=== PATIENT | male | born 1945 | race Caucasian/White ===

== ENCOUNTER 2018-02-06 16:31 | Emergency (ER) | payer MEDICARE, OTHER, SELFPAY ==
[2018-02-06 16:35] VITALS: BP 162/92; PULSE 63; RESP 18; TEMP 37; O2SAT 98; BMI 31.6
--- NOTE | 2018-02-06 17:14 | CT_ITS ---
STUDY: CT CERVICAL SPINE WITHOUT CONTRAST REASON FOR EXAM: Male, 73 years old. Left-sided neck pain x3 days RADIATION DOSAGE (If Supplied By Facility): CTDIvol = ( 23.65 ) mGy, DLP = ( 574.47 ) mGycm TECHNIQUE: High resolution transaxial imaging was performed without contrast material. Sagittal and coronal images were reconstructed. Individualized dose optimization techniques were used for this CT. COMPARISON: None FINDINGS: Normal craniovertebral junction. Normal anterior atlantoaxial articulation. Normal odontoid process. Normal cervical lordosis. Normal vertebral bodies and posterior osseous elements. C2-3: Normal endplates. Normal disc height and morphology. Normal central canal and intervertebral neuroforamina. C3-4: Normal endplates. Normal disc height and morphology. Normal central canal and intervertebral neuroforamina. C4-5: Normal endplates. Normal disc height and morphology. Normal central canal and intervertebral neuroforamina. C5-6: Moderate neural foraminal narrowing bilaterally, right greater than left due to uncinate spondylosis. Small posterior disc marginal osteophyte. Central canal measures 7 mm in the midline. C6-7: Moderate neural foraminal narrowing bilaterally, right greater than left due to uncinate spondylosis. Small posterior disc marginal osteophyte. Central canal measures 7 mm in the midline. C7-T1: Normal endplates. Normal disc height and morphology. Normal central canal and intervertebral neuroforamina. Normal visualized soft tissue structures. CT/Spine Cervical without Contras IMPRESSION: Central lateral spinal stenosis at C5-6 and C6-7 Electronically Signed: Dong Echevarria MD at 17:58 EDT , Service support ,
--- NOTE | 2018-02-06 18:32 | ED.VISSUMM ---
- ER Visit Summary Date of Service: 02/06/18 Chief Complaint: Neck pain History of Present Illness: The patient is a 73 M who states that he is visiting posterior from [place]. [facility] [place] [facility] [place] [facility]. States he has some chronic back pain. Just prior to leaving [place] while he has been on this occasion he has had some pain in the left side of his neck. Reports the area the mastoid on going inferiorly to that. States it is better in the morning worse in the afternoon and evening. He has been using the Voltaren rub and some heat. He has tramadol but has not been helping so he stopped taking it. Denies any paresthesias. He denies any arm weakness. No fevers. No rashes. Physical Examination: Afebrile vital signs stable Gen: Well-nourished well-developed Head: Normocephalic atraumatic Eyes: Perrl EOMI ENT: TMs clear no rhinorrhea moist mucous membranes Neck: Supple no lymphadenopathy no JVD mild tenderness palpation along the left posterior neck musculature CVS: Regular rate rhythm no murmurs normal S1-S2 Respiratory: No distress clear to auscultation bilaterally chest nontender Abdomen: Soft nontender nondistended normal bowel sounds no masses Back: Nontender Extremity: Nontender no edema Skin: Normal color no rash Neuro: alert orientated ?3 CN II-XII intact normal strength sensation reflexes gait cerebellar Psych: Normal affect normal mood Test Results: CT of the cervical spine demonstrated degenerative changes and some cervical stenosis. Emergency Department Course and Treatment: I will write for the patient has some oxycodone. He is going to follow-up with his doctor when he returns to [place]. He will continue the Voltaren in the heat. Impression: 1. Cervical spinal stenosis This note was generated with [employer] dictation software. It may contain incorrect words, spelling, and punctuation that were not noted in review of the chart prior to signing ED Disposition - Plan for ED Patient: Disposition: Home or Assisted Living Chief Complaint: Other, Pain/Inj Instructions: ED DDD Degenerative Disk Disease Prescriptions: Oxycodone [Oxyir] 5 mg PO Q4H PRN PRN 5 Days #25 tab PRN Reason: Pain Referrals: [facility] Doctor,Out of [Primary Care Provider] - (call in am to arrange follow up)
--- NOTE | 2018-02-06 18:35 | ED.DCSUM_ITS ---
- ER Visit Summary Date of Service: 02/06/18 Chief Complaint: Neck pain History of Present Illness: The patient is a 73 M who states that he is visiting posterior from [place]. [facility] [place] [facility]. States he has some chronic back pain. Just prior to leaving [place] while he has been on this occasion he has had some pain in the left side of his neck. Reports the area the mastoid on going inferiorly to that. States it is better in the morning worse in the afternoon and evening. He has been using the Voltaren rub and some heat. He has tramadol but has not been helping so he stopped taking it. Denies any paresthesias. He denies any arm weakness. No fevers. No rashes. Physical Examination: Afebrile vital signs stable Gen: Well-nourished well-developed Head: Normocephalic atraumatic Eyes: Perrl EOMI ENT: TMs clear no rhinorrhea moist mucous membranes Neck: Supple no lymphadenopathy no JVD mild tenderness palpation along the left posterior neck musculature CVS: Regular rate rhythm no murmurs normal S1-S2 Respiratory: No distress clear to auscultation bilaterally chest nontender Abdomen: Soft nontender nondistended normal bowel sounds no masses Back: Nontender Extremity: Nontender no edema Skin: Normal color no rash Neuro: alert orientated ?3 CN II-XII intact normal strength sensation reflexes gait cerebellar Psych: Normal affect normal mood Test Results: CT of the cervical spine demonstrated degenerative changes and some cervical stenosis. Emergency Department Course and Treatment: I will write for the patient has some oxycodone. He is going to follow-up with his doctor when he returns to [place]. He will continue the Voltaren in the heat. Impression: 1. Cervical spinal stenosis This note was generated with [employer] dictation software. It may contain incorrect words, spelling, and punctuation that were not noted in review of the chart prior to signing ED Disposition - Plan for ED Patient: Disposition: Home or Assisted Living Chief Complaint: Other, Pain/Inj Instructions: ED DDD Degenerative Disk Disease Prescriptions: Oxycodone [Oxyir] 5 mg PO Q4H PRN PRN 5 Days #25 tab PRN Reason: Pain Referrals: [facility] Doctor,Out of [Primary Care Provider] - (call in am to arrange follow up)
== END 2018-02-06 18:42 | disposition home or self-care (01) ==
PROVIDERS: Emergency Provider Emergency Medicine
DX: M48.02 Spinal stenosis, cervical region (principal); I25.10 Atherosclerotic heart disease of native coronary artery without angina pectoris; I25.2 Old myocardial infarction; G89.29 Other chronic pain; Z79.82 Long term (current) use of aspirin; Z79.01 Long term (current) use of anticoagulants; Z79.899 Other long term (current) drug therapy
CPT/HCPCS: 72125; 99282

== ENCOUNTER 2021-11-22 10:26 | Emergency (ER) | payer OTHER, SELFPAY ==
[2021-11-22 10:28] VITALS: BP 107/81; PULSE 112; RESP 24; TEMP 35.7; O2SAT 95; BMI 30.4
--- NOTE | 2021-11-22 10:51 | ED.VIS.GI ---
HPI HPI - GI History of Present Illness Chief Complaint: Nausea/Vomiting/Diarrhea Informant: patient Nausea/Vomiting/Emesis GI Symptom: Positive for Nausea and Vomiting Onset: Yesterday Quality: Positive for Nonbilious; Negative for Blood streaks, Coffee ground and Hematemesis Diarrhea/Melena/Hematochezia GI Symptom: Positive for Diarrhea Onset: Yesterday Stool Quality: Positive for Watery; Negative for Black, Maroon and BRB per rectum Associated Symptoms Associated Symptoms: Negative for Dysuria, Frequency and Hematuria Narrative Narrative: Patient presents with nausea, vomiting, and diarrhea that began yesterday. Patient states it has been constant. Patient states his diarrhea is watery. Patient denies any melena or hematochezia. Patient denies any dysuria or hematuria. Patient states he is vomiting up stomach contents and everything that he tries to eat. Patient denies any hematemesis or coffee-ground emesis. Patient denies any abdominal pain. Patient admits to some subjective chills. Patient states that his daughter also ate the same thing that he did and she does not have any symptoms. Patient states that his grandchildren had recent nausea and vomiting and diarrhea episodes a couple of days ago. PFSH PFS Home Medications aspirin 325 mg PO QHS 02/06/18 [History Last Taken Unknown] atorvastatin 40 mg PO QHS 02/06/18 [History Last Taken Unknown] clopidogrel 75 mg PO QHS 02/06/18 [History Last Taken Unknown] diclofenac sodium 1 applic TOPICAL 4X/DAY PRN PRN 02/06/18 [History Last Taken Unknown] ondansetron 4 mg PO Q8H PRN PRN #10 tab 11/22/21 [Rx Last Taken Unknown] Allergy/AdvReac Type Severity Reaction Status Date / Time codeine Allergy Itching Verified 11/22/21 11:21 gabapentin Allergy Other Verified 11/22/21 11:21 oxycodone Allergy Itching Verified 11/22/21 11:21 OPIOIDS AdvReac Other Uncoded 11/22/21 10:28 Surgical History (Updated 11/22/21 @ 11:16 by Zayda Hernandez RN) History of heart artery stent Social History Smoking Status: Current every day smoker tobacco type: cigarettes ROS ROS ED Constitutional Constitutional ED: Reports chills; Denies fever(s) Eyes Eyes: Denies blurry vision or change in vision ENT ENT ED: Reports rhinorrhea; Denies sore throat Cardiovascular Cardiovascular: Denies chest pain or palpitations Respiratory/Chest Respiratory/Chest: Denies cough or dyspnea Gastrointestinal Gastrointestinal: Reports diarrhea, nausea and vomiting; Denies abdominal pain Genitourinary Genitourinary ED: Denies dysuria or hematuria Musculoskeletal Musculoskeletal: Reports arthralgias, myalgias and neck pain; Denies back pain Integumentary Denies abscess or rash Neurologic Neurologic: Denies headache(s) or weakness Allergic/Immunologic Allergic/Immunologic ED: Denies mouth swelling or urticaria EXAM Physical Exam Const Vital Signs: 11/22/21 10:28 Temperature 96.3 F L Temperature Source Oral Pulse Rate 112 H Respiratory Rate 24 H Blood Pressure 107/81 H Blood Pressure Mean 89 Pulse Ox 95 Oxygen Delivery Method Room Air Positive well nourished and well developed General Appearance ED: well developed and NAD HEENT Reports moist mucous membranes Neck supple and no JVD Resp normal respiratory effort and clear to auscultation bilaterally Cardio regular rhythm Rate: tachycardic GI normal to inspection, nondistended, normoactive bowel sounds and non-tender Palpation: soft Extremity normal to inspection General Extremety ED: Negative for edema or tenderness General Extremity: Negative for edema Neuro oriented x3, CN's II-XII intact bilaterally and no sensory deficits noted Sensorium / Orientation: alert Motor Exam: strength 5/5 throughout Psych mental status grossly normal Skin no rashes or lesions noted MDM MDM MDM Narrative Medical decision making narrative: Patient was given IV fluids and Zofran. CBC was essentially within normal limits. Comprehensive metabolic profile shows slightly elevated BUN of 22 and creatinine 1.53. There are no prior results for comparison. Lipase was normal. Urinalysis shows leukocyte esterase of 25. Nitrates were negative. There were 0-5 white blood cells and 0-5 red blood cells. Patient is feeling better on reevaluation. Patient was given a prescription for Zofran to take as needed for nausea. Patient was instructed to start with a liquid diet and advance to a bland diet and then to a regular diet as he feels better. Patient was instructed to follow-up with his primary care physician in 5 to 7 days. Patient was instructed to return to the emergency department if worse in any way. Patient understood and was agreeable with the plan. All questions were answered. Lab Data Attestation: I reviewed the patient's lab results. Labs: Laboratory Results - last 24 hr 11/22/21 11/22/21 11/22/21 11:10 11:10 11:50 WBC 10.0 RBC 5.21 Hgb 17.0 H Hct 51.0 MCV 97.9 H MCH 32.6 H MCHC 33.3 RDW Std Deviation 50.9 H RDW Coeff of Emily 14.1 Plt Count 264 MPV 10.2 Immature Gran % (Auto) 0.300 Neut % (Auto) 92.0 H Lymph % (Auto) 4.1 L [place] % (Auto) 3.0 Eos % (Auto) 0.3 Baso % (Auto) 0.3 Absolute Neuts (auto) 9.2 H Absolute Lymphs (auto) 0.41 L Nucleated RBC % 0 Differential Comment Platelet Estimate ADEQUATE RBC Morphology NORM C+C Sodium 143 Potassium 3.8 Chloride 108 H Carbon Dioxide 26.0 Anion Gap 9 BUN 22 H Creatinine 1.53 H Estim Creat Clear Calc 45.79 Est GFR (MDRD) Af Amer 57 L Est GFR (MDRD) Non-Af 47 L BUN/Creatinine Ratio 14.4 Glucose 147 H Calcium 9.0 Total Bilirubin 1.00 AST 21 ALT 27 Alkaline Phosphatase 105 Total Protein 7.0 Albumin 3.6 Globulin 3.4 Albumin/Globulin Ratio 1.1 Lipase 49 L Urine Color Yellow Urine Clarity Sl. Cloudy Urine pH 7.0 Ur Specific [place] 1.010 Urine Protein 30 H Urine Glucose (UA) Normal Urine Ketones 5 H Urine Occult Blood 10 H Urine Nitrite Negative Urine Bilirubin 1 H Urine Urobilinogen 1 H Ur Leukocyte Esterase 25 H Urine RBC 0-5 SEEN Urine WBC 0-5 SEEN Ur Squamous Epith Cells 0-5 SEEN Urine Bacteria 1+ Urine Mucus 0 SEEN Discharge Plan Triage Chief Complaint: Nausea/Vomiting/Diarrhea ED Provider: [facility] Dx/Rx/DC Orders Clinical Impression: Nausea and vomiting, Dehydration Instructions: ED Food Poison Or Gastroenteritis Prescriptions: New ondansetron [ondansetron] 4 MG tablet 4 mg PO Q8H PRN PRN (Reason: Nausea) Qty: 10 RF: 0 No Action atorvastatin 40 MG tablet 40 mg PO QHS RF: 0 aspirin 325 MG tablet 325 mg PO QHS RF: 0 clopidogrel 75 MG tablet 75 mg PO QHS RF: 0 diclofenac sodium 100 GM gel 1 applic topical 4X/DAY PRN PRN (Reason: Pain) RF: 0 [facility] Provider[facility] - 5-7 Days Disposition Disposition: Home, Self Care
[2021-11-22] MEDS: Ondansetron 4 MG/2 ML Vial IV (11:06)
[2021-11-22] MEDS: 0.9% Normal Saline 1,000 ML 1000 ML IV (11:06)
[2021-11-22 11:26] LABS: Absolute Lymphocyte Count 0.41 X10^3/uL (0.83-4.51); Absolute Neutrophil Count 9.2 X10^3/uL (2.0-7.7); Basophil# 0.03 X10^3/uL; Basophil% 0.3 % (0-1); Eosinophil# 0.03 X10^3/uL; Eosinophils% 0.3 % (0-5); Lymphocyte # 0.41 X10^3/ul (0.83-4.51); Lymphocyte % 4.1 % (19-41); Mean Corp Hgb Conc 33.3 g/dL (32-36); Mean Corpuscular Hgb 32.6 pg (27.0-32.0); Mean Corpuscular Volume 97.9 fL (80-94); Mean Platelet Vol. 10.2 fl (6.2-12.0); NRBC Flagged by Analyzer 0 % (0-5); POSITIVE DIFFERENTIAL YES; Platelet Count 264 K/mm3 (150-450); RBC Distribution Width CV 14.1 % (11.6-14.6); RBC Distribution Width SD 50.9 fl (35.1-43.9); Red Blood Count 5.21 M/mm3 (4.6-6.2)
[2021-11-22 11:29] LABS: Differential Indicated SCAN CRITERIA MET
[2021-11-22 11:45] LABS: ALB/GLOB Ratio 1.1 RATIO (0.9-2.4); AST(SGOT) 21 U/L (15-37); Alanine Aminotransfer ALT/SGPT 27 U/L (16-61); Albumin, Serum 3.6 g/dL (3.2-5.0); Alkaline Phosphatase 105 U/L (45-117); Anion Gap 9 (5-15); BUN 22 mg/dL (7-18); BUN/Creat Ratio 14.4 RATIO (10-20); Chloride 108 mmol/L (98-107); Creatinine, Serum 1.53 mg/dL (0.70-1.30); EST Glomerular Filtration Rate 47 mL/min (>60); Est Glom Filt Rate - Afr Amer 57 mL/min (>60); Estimated Creatinine Clearance 45.79 ml/min; Globulin 3.4 g/dL (2.2-4.2); Glucose 147 mg/dL (74-106); Lipase 49 U/L (73-393); Potassium 3.8 mmol/L (3.5-5.1); Sodium Level 143 mmol/L (136-145)
[2021-11-22 12:02] LABS: Platelet Estimate ADEQUATE (ADEQ); Red Cell Morphology NORM C+C NORMAL (NORM C&C)
[2021-11-22 12:29] LABS: Mucous, Urine 0 SEEN /hpf (<or=2+)
[2021-11-22 12:51] LABS: Color, Urine Yellow (Yellow); Glucose, Dipstick Normal (Normal); Ketone-Dipstick 5 mg/dl (Negative); Leukocyte Esterase-Dipstick 25 /ul (Negative); Nitrite-Dipstick Negative (Negative); Occult Blood-Urine 10 /ul (Negative); Protein-Dipstick 30 mg/dl (Negative); Urine Clarity Sl. Cloudy (Clear); Urine Urobilinogen 1 mg/dl (Normal)
[2021-11-22 12:53] LABS: Urine Bilirubin Dipstick 1 mg/dL (Negative)
[2021-11-22 13:05] LABS: Bacteria 1+ /hpf (None Seen); Red Blood Cells-Urine 0-5 SEEN /hpf (0-5); Squamous Epithelial Cells - UA 0-5 SEEN /hpf (0-5); White Blood Cells 0-5 SEEN /hpf (0-5)
[2021-11-22 13:34] VITALS: BP 111/70; PULSE 93; RESP 21; O2SAT 96
== END 2021-11-22 13:35 | disposition home or self-care (01) ==
PROVIDERS: Emergency Provider Emergency Medicine; Visit Provider Emergency Medicine
DX: R11.2 Nausea with vomiting, unspecified (principal); E86.0 Dehydration; F17.210 Nicotine dependence, cigarettes, uncomplicated
CPT/HCPCS: 80053; 81001; 83690; 85025; 96361; 96374; 99284; J7030; A4216; J2405

== ENCOUNTER 2022-07-11 04:06 | Emergency (ER) | payer OTHER, SELFPAY ==
[2022-07-11] VITALS (7 sets, daily range): BP systolic 115–152; BP diastolic 63–99; PULSE 67–76; RESP 20–24; TEMP 35.9–36.8; O2SAT 94–98; BMI 31.0
--- NOTE | 2022-07-11 04:27 | EKG12_ITS ---
Test Reason : CP Blood Pressure : / mmHG Vent. Rate : 082 BPM Atrial Rate : 082 BPM P-R Int : 242 ms QRS Dur : 098 ms QT Int : 370 ms P-R-T Axes : 029 007 087 degrees QTc Int : 432 ms Sinus rhythm with marked sinus arrhythmia with 1st degree A-V block Otherwise normal ECG Confirmed by OLAYINKA ARZOLA, MIRNA ([id number]), video news editor PATRIZIA COE ([id number]) on 07/12/2022 11:25:13 AM Referred By: MARGY Confirmed By:MIRNA BHAGAT MD
--- NOTE | 2022-07-11 04:27 | CT_ITS ---
We are attempting to reach an attending provider to discuss findings. An addendum with communication details will be sent when the communication is complete. STUDY: CTA CHEST REASON FOR EXAM: Male, 77 years old. Chest pain / ? PE RADIATION DOSAGE (If Supplied By Facility): CTDIvol = ( 19.73 ) mGy, DLP = ( 564.12 ) mGycm TECHNIQUE: The examination was performed with the intravenous administration of IV 100mL Isovue-370. Post-processing of the angiographic images was performed, with multiplanar reformation and 3D reconstruction. Individualized dose optimization techniques were used for this CT. COMPARISON: None. FINDINGS: There is a visualized filling defect within a right middle lobe branch. Ascending thoracic aorta measures 3.4 x 3.2 cm the descending thoracic aorta measures 3 x 3.3 cm. The aorta is tortuous partially calcified and demonstrates atherosclerotic plaque. There is no demonstrated aortic dissection. Normal heart and pericardium. Normal mediastinum. Normal hilar regions. There is visualized mild to moderate central bronchiectasis especially in the lung bases. There few scattered emphysematous blebs within the lungs especially in the right upper lobe. Within the right middle lobe there is visualized. Groundglass opacity in the periphery of the right middle lobe. Normal pleura. Normal chest wall structures. There are degenerative changes of thoracic spine. Visualized cholelithiasis. There is moderate stool within the colon. There is a visualized small hiatal hernia. There is mild distention of the distal esophagus. The aorta at the hiatus measures 3.[address]/CTA Chest W/WO Contrast IMPRESSION: Findings are positive for right middle lobe pulmonary embolism. There is peripheral groundglass opacity in the right middle lobe and right upper lobe which may represent peribronchial inflammation and associated bronchiectasis and/or potentially chronic PE. There is bronchiectasis minimal atelectasis. Minimal emphysematous change. 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 Small hiatal hernia. Wall thickening of the esophagus could consider esophagitis. Electronically Signed: Marianne Coleman MD at 6:00 EST ,
--- NOTE | 2022-07-11 04:27 | EKG12_ITS ---
Test Reason : REPEAT Blood Pressure : / mmHG Vent. Rate : 063 BPM Atrial Rate : 063 BPM P-R Int : 216 ms QRS Dur : 100 ms QT Int : 396 ms P-R-T Axes : 080 004 090 degrees QTc Int : 405 ms Sinus rhythm with marked sinus arrhythmia with 1st degree A-V block Otherwise normal ECG Confirmed by OLAYINKA ARZOLA, MIRNA ([id number]), magazine editor PATRIZIA COE ([id number]) on 07/12/2022 11:25:29 AM Referred By: Confirmed By:MIRNA BHAGAT MD
[2022-07-11] MEDS: Aspirin 325 MG Tablet PO (04:34)
[2022-07-11 04:35] LABS: Absolute Lymphocyte Count 2.03 X10^3/uL (0.83-4.51); Absolute Neutrophil Count 8.9 X10^3/uL (2.0-7.7); Basophil# 0.05 X10^3/uL; Basophil% 0.4 % (0-1); Eosinophils% 1.7 % (0-5); Hematocrit 51.8 % (40-54); Hemoglobin 16.7 g/dL (13.0-16.5); Lymphocyte # 2.03 X10^3/ul (0.83-4.51); Lymphocyte % 16.9 % (19-41); Mean Corp Hgb Conc 32.2 g/dL (32-36); Mean Corpuscular Hgb 32.3 pg (27.0-32.0); Mean Corpuscular Volume 100.2 fL (80-94); Mean Platelet Vol. 10.4 fl (6.2-12.0); Monocyte# 0.82 X10^3/uL; Monocyte% 6.8 % (0-10); NRBC Flagged by Analyzer 0 % (0-5); Neutrophil # 8.85 X10^3/uL (2.7-7.7); Neutrophil % 73.9 % (47-70); Platelet Count 289 K/mm3 (150-450); RBC Distribution Width CV 13.2 % (11.6-14.6); RBC Distribution Width SD 48.8 fl (35.1-43.9); Red Blood Count 5.17 M/mm3 (4.6-6.2)
[2022-07-11] MEDS: Nitroglycerin SL (ED/IMG/CATH) 0.4 MG TABLET SL ×3 (04:36→05:20)
--- NOTE | 2022-07-11 04:49 | EDS_ITS ---
HPI History of Present Illness Chief Complaint: Chest Pain Narrative Narrative: Patient is a 77-year-old male with past medical history of BPH hyperlipidemia and previous CAD requiring stent placement approximately 15 years ago. He states that he went to bed as he normally would last night and then awoke approximately 1 to 2 hours prior to arrival with some midsternal chest discomfort. He describes it as a pressure and states he has shortness of breath and actually his chest pressure worsens when he tries to take a deep breath in. He denies any recent surgery travel history of DVT/PE. He states he has been taking his medications as directed. He denies any recent trauma or excessive activity. He denies any sick symptoms. He states he was concerned this could be cardiac in nature and therefore comes to the hospital [facility] Medical History Coronary artery disease Degenerative disc disease Tobacco use Home Medications aspirin 325 mg tablet 81 mg PO QHS 02/06/18 [History Last Taken Unknown] atorvastatin 40 mg tablet 40 mg PO QHS 02/06/18 [History Last Taken Unknown] clopidogrel 75 mg tablet 75 mg PO QHS 02/06/18 [History Last Taken Unknown] apixaban 5 mg (74 tabs) tablets in a dose pack (Eliquis DVT-PE Treat 30D Start) 5 mg PO BID #74 tabs 07/11/22 [Rx Last Taken Unknown] pregabalin 75 mg capsule (Lyrica) 75 mg PO BID 07/11/22 [History Last Taken 07/09/22] tamsulosin 0.4 mg capsule 0.4 mg PO QHS 07/11/22 [History Last Taken Unknown] Allergy/AdvReac Type Severity Reaction Status Date / Time codeine Allergy Itching Verified 11/22/21 11:21 gabapentin Allergy Other Verified 11/22/21 11:21 oxycodone Allergy Itching Verified 11/22/21 11:21 OPIOIDS AdvReac Other Uncoded 11/22/21 10:28 Surgical History (Updated 07/11/22 @ 04:13 by Nuria Armas) History of heart artery stent History of left hip replacement Social History Smoking Status: Current every day smoker tobacco type: cigarettes ROS ROS ED Constitutional Constitutional ED: Denies chills or fever(s) ENT ENT ED: Denies rhinorrhea or sore throat Cardiovascular Cardiovascular: Reports chest pain; Denies palpitations or racing heartbeat Respiratory/Chest Respiratory/Chest: Reports dyspnea; Denies cough Gastrointestinal Gastrointestinal: Denies abdominal pain, diarrhea, nausea or vomiting Genitourinary Genitourinary ED: Denies dysuria Musculoskeletal Musculoskeletal: Denies myalgias Integumentary Denies rash Neurologic Neurologic: Denies headache(s) Hematologic/Lymphatic Hematologic/Lymphatic: Reports easy bleeding and easy bruising EXAM Physical Exam Const Vital Signs: 07/11/22 04:06 07/11/22 04:15 07/11/22 04:36 Temperature 96.7 F L Temperature Source Temporal Pulse Rate 72 67 Respiratory Rate 20 H Respiratory Effort Normal Non-Labored Blood Pressure 152/99 H 116/67 Blood Pressure Mean 116 Pulse Ox 97 Oxygen Delivery Method Room Air Oxygen Flow Rate (L/min) 07/11/22 05:13 07/11/22 05:20 07/11/22 05:22 Temperature Temperature Source Pulse Rate 69 76 71 Respiratory Rate 22 H Respiratory Effort Blood Pressure 141/78 H 124/63 H 124/63 H Blood Pressure Mean 83 Pulse Ox 94 Oxygen Delivery Method Nasal Cannula Oxygen Flow Rate (L/min) 2 07/11/22 06:00 Temperature Temperature Source Pulse Rate 68 Respiratory Rate 24 H Respiratory Effort Blood Pressure 115/75 Blood Pressure Mean 88 Pulse Ox 98 Oxygen Delivery Method Nasal Cannula Oxygen Flow Rate (L/min) 2 Positive well nourished and well developed General Appearance ED: well developed HEENT Reports moist mucous membranes Eyes PERRL and EOMs intact bilaterally Neck supple and no JVD Chest Wall palpation of chest normal Chest Narrative: No bony deformity or crepitance noted no reproducible pain with palpation Resp normal respiratory effort and clear to auscultation bilaterally Resp Narrative: Breath sounds are diminished throughout but overall clear to auscultation with no signs of respiratory distress Cardio regular rate Rate: other Other Details: Patient has a regular rate with slightly irregular rhythm most consistent with sinus arrhythmia. Radial pulses are +2-4 bilaterally Carotid pulses are equal and symmetric as well GI normal to inspection, nondistended, normoactive bowel sounds, non-tender and non-distended GI Narrative: No voluntary guarding or rigidity. No pulsatile mass Auscultation: normoactive bowel sounds Palpation: soft Extremity normal to inspection Extremity Narrative: No asymmetric edema no pitting edema negative Homans' sign bilaterally Neuro oriented x3 and CN's II-XII intact bilaterally Sensorium / Orientation: alert Psych mental status grossly normal Skin no rashes or lesions noted MDM MDM MDM Narrative Medical decision making narrative: Patient presented to the ER mildly hypertensive otherwise with stable vitals. He does have history of coronary artery disease with stent placement roughly 15 years ago. He states he went to bed normally and then awoke with midsternal chest discomfort that was worse with deep inspiration. He has no recent history of travel surgery hormone use or previous DVT/PE without was a concern based on his symptom onset. Basic labs were obtained which shows a troponin of 13 and a 2-hour delta staying flat at a value of 12 indicating no acute coronary injury. The CTA did show a right-sided pulmonary embolus which does fit the chest pain and worse with inspiration complaint. There is the inflammatory changes noted on CAT scan which questions if this could be an infectious process but the patient does not have fever he is not coughing and his symptoms have come on suddenly going against infection as a cause of his symptoms and therefore do not feel he requires antibiotics. At this time he is hemodynamically stable his chest pain has resolved he is not requiring supplemental oxygen as I turned it off and his pulse ox remained in the mid to high 90s and it was only on as a comfort measure. Therefore he will be placed on Eliquis and can follow[facility] and[facility] Lab Data Attestation: I reviewed the patient's lab results. Labs: Laboratory Results - last 24 hr 07/11/22 07/11/22 07/11/22 04:15 04:15 04:15 WBC 12.0 H RBC 5.17 Hgb 16.7 H Hct 51.8 MCV 100.2 H MCH 32.3 H MCHC 32.2 RDW Std Deviation 48.8 H RDW Coeff of Emily 13.2 Plt Count 289 MPV 10.4 Immature Gran % (Auto) 0.300 Neut % (Auto) 73.9 H Lymph % (Auto) 16.9 L [place] % (Auto) 6.8 Eos % (Auto) 1.7 Baso % (Auto) 0.4 Absolute Neuts (auto) 8.9 H Absolute Lymphs (auto) 2.03 Nucleated RBC % 0 PT 13.6 INR 1.1 APTT 30.7 Sodium 141 Potassium 3.6 Chloride 104 Carbon Dioxide 30.0 Anion Gap 7 BUN 12 Creatinine 1.12 Estim Creat Clear Calc 63.41 Est GFR (MDRD) Af Amer 82 Est GFR (MDRD) Non-Af 68 BUN/Creatinine Ratio 10.7 Glucose 115 H Calcium 9.5 Magnesium 2.1 Troponin I High Sens 13 TSH 3.04 07/11/22 06:20 WBC RBC Hgb Hct MCV MCH MCHC RDW Std Deviation RDW Coeff of Emily Plt Count MPV Immature Gran % (Auto) Neut % (Auto) Lymph % (Auto) [place] % (Auto) Eos % (Auto) Baso % (Auto) Absolute Neuts (auto) Absolute Lymphs (auto) Nucleated RBC % PT INR APTT Sodium Potassium Chloride Carbon Dioxide Anion Gap BUN Creatinine Estim Creat Clear Calc Est GFR (MDRD) Af Amer Est GFR (MDRD) Non-Af BUN/Creatinine Ratio Glucose Calcium Magnesium Troponin I High Sens 12 TSH Radiography Diagnostic Testing: Clinical Impression(s) from Imaging Studies Chest CTA 07/11/22 04:27 IMPRESSION: Findings are positive for right middle lobe pulmonary embolism. There is peripheral groundglass opacity in the right middle lobe and right upper lobe which may represent peribronchial inflammation and associated bronchiectasis and/or potentially chronic PE. There is bronchiectasis minimal atelectasis. Minimal emphysematous change. 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 Small hiatal hernia. Wall thickening of the esophagus could consider esophagitis. Electronically Signed: Marianne Coleman MD at 6:00 EST Reading Location ID and State: [facility] / [place] Tel , Service support , ADDENDUM: 07/11/22 0641 IMPRESSION: Findings are positive for right middle lobe pulmonary embolism. There is peripheral groundglass opacity in the right middle lobe and right upper lobe which may represent peribronchial inflammation and associated bronchiectasis and/or potentially chronic PE. There is bronchiectasis minimal atelectasis. Minimal emphysematous change. 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 Small hiatal hernia. Wall thickening of the esophagus could consider esophagitis. N.B. : The above Results were Read Back by Marianne Coleman MD to Del Nunes DO, and understanding confirmed on 07/11/2022 06:34:55 (ET). Electronically Signed: Marianne Coleman MD at 6:00 EST , Discharge Plan Triage Chief Complaint: Chest Pain ED Provider: Del Nunes Dx/Rx/DC Orders Clinical Impression: Pulmonary embolism, Tobacco abuse, Coronary artery disease Instructions: Embolism Pulmonary Dc Prescriptions: New Eliquis DVT-PE Treat 30D Start 5 mg (74 tabs) tablets,dose pack 5 mg PO BID Qty: 74 0RF No Action atorvastatin 40 MG tablet 40 mg PO QHS aspirin 325 MG tablet 81 mg PO QHS clopidogrel 75 MG tablet 75 mg PO QHS tamsulosin 0.4 mg Capsule 0.4 mg PO QHS pregabalin [Lyrica] 75 mg Capsule 75 mg PO BID [facility] Care Provider[facility] Referrals: Jaspal Ge MD [Med Staff - Active Staff] - [facility] [Primary Care Provider] - Activity Restrictions/Additional Instructions: Your work-up today showed no sign of heart damage but you do have a blood clot in your lungs called a pulmonary embolus. Secondary to this please begin taking Eliquis to help dissolve the clot and follow-up with your family doctor or cardiology for repeat evaluation. Please stop taking aspirin secondary to the new Eliquis prescription Disposition Disposition: Home, Self Care
[2022-07-11 05:10] LABS: International Normalized Ratio 1.1; Partial Thromboplast Time 30.7 Seconds (24.1-36.2); Prothrombin Time (Protime)PT. 13.6 SECONDS (11.7-14.9)
[2022-07-11 05:26] LABS: Anion Gap 7 (5-15); BUN 12 mg/dL (7-18); BUN/Creat Ratio 10.7 RATIO (10-20); Calcium,Total 9.5 mg/dL (8.5-10.1); Chloride 104 mmol/L (98-107); Creatinine, Serum 1.12 mg/dL (0.70-1.30); EST Glomerular Filtration Rate 68 mL/min (>60); Est Glom Filt Rate - Afr Amer 82 mL/min (>60); Estimated Creatinine Clearance 63.41 ml/min; Glucose 115 mg/dL (74-106); Magnesium 2.1 mg/dL (1.6-2.6); Potassium 3.6 mmol/L (3.5-5.1); Sodium Level 141 mmol/L (136-145); Thyroid Stim Hormone (TSH) 3.04 uIU/mL (0.358-3.74); Troponin-I HS 13 pg/mL (3.0-78.0)
[2022-07-11 06:46] LABS: Troponin-I HS 12 pg/mL (3.0-78.0)
[2022-07-11] MEDS: APIXABAN 5 MG TABLET PO (07:25)
== END 2022-07-11 07:30 | disposition home or self-care (01) ==
PROVIDERS: Emergency Provider Emergency Medicine; Visit Provider Emergency Medicine
DX: I26.99 Other pulmonary embolism without acute cor pulmonale (principal); I25.10 Atherosclerotic heart disease of native coronary artery without angina pectoris; F17.210 Nicotine dependence, cigarettes, uncomplicated; E78.5 Hyperlipidemia, unspecified; Z95.5 Presence of coronary angioplasty implant and graft; R06.02 Shortness of breath; R07.9 Chest pain, unspecified
CPT/HCPCS: 71275; 80048; 83735; 84443; 84484; 85025; 85610; 85730; 93005; 96360; 99283; J7040; Q9967; A4216

== ENCOUNTER 2022-12-12 12:07 | Emergency (ER) | payer OTHER, SELFPAY ==
[2022-12-12 12:09] VITALS: BP 132/70; PULSE 72; RESP 18; TEMP 36.1; O2SAT 97; BMI 34.5
--- NOTE | 2022-12-12 12:23 | CT_ITS ---
STUDY: CT ABDOMEN AND PELVIS WITHOUT CONTRAST REASON FOR EXAM: Male, 77 years old. One-day history of right flank pain. RADIATION DOSAGE (If Supplied By Facility): CTDIvol = ( 32.27 ) mGy, DLP = ( 1676.99 ) mGycm TECHNIQUE: Transaxial images were obtained from the dome of the diaphragm to the symphysis pubis without oral contrast, and without intravenous contrast. Sagittal and coronal images were reconstructed. Individualized dose optimization techniques were used for this CT. COMPARISON: None. FINDINGS: The visualized lung bases are unremarkable. Coronary artery calcification. There is decreased attenuation of the liver consistent with steatosis. There are multiple small gallstones. Normal spleen. Normal pancreas. Normal bilateral adrenal glands. Normal right kidney. The patient is status post left nephrectomy. Normal visualized stomach. Normal small intestine. There are multiple colonic diverticula consistent with diverticulosis. The appendix is visualized and appears normal. There is diffuse atherosclerotic calcification of the abdominal aorta and its major visceral branches, without a demonstrated aneurysm. Normal inferior vena cava. Normal retroperitoneum. Normal urinary bladder. There are prostatic calcifications. Normal abdominal wall. There are diffuse degenerative changes of the visualized lumbar spine. The patient is status post laminectomy and fusion at the L3-L4, L4-L5 and L5-S1 levels. CT/Abdomen/Pelvis without Cont IMPRESSION: Fatty infiltration of the liver. Status post left nephrectomy. Multiple small gallstones. Sigmoid diverticulosis. Electronically Signed: Андрей Bravo MD at 13:38 EDT ,
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
[2022-12-12] MEDS: Ondansetron 4 MG/2 ML Vial IV (12:40)
[2022-12-12] MEDS: Morphine 4 MG/ML Syringe IV (12:40)
[2022-12-12 12:43] LABS: Absolute Lymphocyte Count 1.71 X10^3/uL (0.83-4.51); Absolute Neutrophil Count 4.7 X10^3/uL (2.0-7.7); Basophil# 0.04 X10^3/uL; Basophil% 0.6 % (0-1); Eosinophil# 0.17 X10^3/uL; Eosinophils% 2.4 % (0-5); Hematocrit 46.6 % (40-54); Hemoglobin 15.3 g/dL (13.0-16.5); Lymphocyte # 1.71 X10^3/ul (0.83-4.51); Lymphocyte % 23.9 % (19-41); Mean Corp Hgb Conc 32.8 g/dL (32-36); Mean Corpuscular Hgb 33.4 pg (27.0-32.0); Mean Corpuscular Volume 101.7 fL (80-94); Mean Platelet Vol. 9.3 fl (6.2-12.0); Monocyte# 0.53 X10^3/uL; Monocyte% 7.4 % (0-10); NRBC Flagged by Analyzer 0 % (0-5); Neutrophil # 4.69 X10^3/uL (2.7-7.7); Neutrophil % 65.4 % (47-70); Platelet Count 238 K/mm3 (150-450); RBC Distribution Width CV 13.7 % (11.6-14.6); RBC Distribution Width SD 51.3 fl (35.1-43.9); Red Blood Count 4.58 M/mm3 (4.6-6.2); White Blood Count 7.2 K/mm3 (4.4-11.0)
[2022-12-12 12:58] LABS: Anion Gap 5 (5-15); BUN 16 mg/dL (7-18); Calcium,Total 8.9 mg/dL (8.5-10.1); Chloride 109 mmol/L (98-107); Creatinine, Serum 1.14 mg/dL (0.70-1.30); EST Glomerular Filtration Rate 66 mL/min (>60); Est Glom Filt Rate - Afr Amer 80 mL/min (>60); Estimated Creatinine Clearance 58.71 ml/min; Glucose 115 mg/dL (74-106); Sodium Level 141 mmol/L (136-145)
[2022-12-12 13:07] VITALS: RESP 18
[2022-12-12] MEDS: 0.9% Normal Saline 1,000 ML 999 ML IV (13:40)
[2022-12-12 14:07] VITALS: RESP 18
[2022-12-12 14:18] LABS: Bacteria 0 SEEN /hpf (None Seen); Mucous, Urine 0 SEEN /hpf (<or=2+); Red Blood Cells-Urine 0 SEEN /hpf (0-5)
[2022-12-12 14:32] LABS: Color, Urine Yellow (Yellow); Glucose, Dipstick Normal (Normal); Ketone-Dipstick 5 mg/dl (Negative); Leukocyte Esterase-Dipstick 25 /ul (Negative); Nitrite-Dipstick Negative (Negative); Occult Blood-Urine Negative /ul (Negative); Protein-Dipstick 15 mg/dl (Negative); Specific Gravity, Urine 1.025 (1.002-1.030); Urine Bilirubin Dipstick Negative (Negative); Urine Clarity Sl. Cloudy (Clear); Urine Urobilinogen 1 mg/dl (Normal)
[2022-12-12 14:42] LABS: Squamous Epithelial Cells - UA 0-5 SEEN /hpf (0-5); White Blood Cells 0-5 SEEN /hpf (0-5)
== END 2022-12-12 14:55 | disposition home or self-care (01) ==
PROVIDERS: Physician Assistant; Emergency Provider Emergency Medicine; Visit Provider Emergency Medicine
DX: R10.9 Unspecified abdominal pain (principal); F17.210 Nicotine dependence, cigarettes, uncomplicated; E78.5 Hyperlipidemia, unspecified; G89.29 Other chronic pain; I25.10 Atherosclerotic heart disease of native coronary artery without angina pectoris; M54.9 Dorsalgia, unspecified; Z79.82 Long term (current) use of aspirin; Z79.01 Long term (current) use of anticoagulants; Z79.899 Other long term (current) drug therapy; Z95.5 Presence of coronary angioplasty implant and graft
CPT/HCPCS: 74176; 80048; 81001; 85025; 96361; 96374; 96375; 99282; J7030; A4216; J2405

== ENCOUNTER → 2024-05-14 | Outpatient (CLI) | payer OTHER, SELFPAY | END | disposition home or self-care (01) | LOC: SL 20:06 | DX: G47.33 Obstructive sleep apnea (adult) (pediatric) (principal) | CPT/HCPCS: 95810 ==

== ENCOUNTER 2024-06-05 18:00 | Emergency (ER) | payer OTHER, SELFPAY ==
[2024-06-05 18:01] VITALS: BP 114/74; PULSE 70; RESP 16; TEMP 36.7; O2SAT 99; BMI 36.6
--- NOTE | 2024-06-05 18:57 | EDS_ITS ---
HPI History of Present Illness Chief Complaint: Back Informant: patient Onset/Context/Timing Onset: Month(s) Context: Gradual Onset Timing: Continuous Quality: Sharp Location: Lumbar and Right Leg Current Severity: Mild Maximum Severity: Moderate Worsened by: improves with Movement Relieved by: Remaining Still Associated Symptoms Associated Symptoms: Radiation to Right Leg; Negative for Radiation to Left Leg, Fever, Abdominal Pain, Dysuria, Unable to Ambulate, Unable to Transfer, Urinary Retention, Urinary Incontinence, Constipation or Fecal Incontinence Narrative Narrative: 79-year-old male history of degenerative disc disease which she has had 2 prior back surgeries. He also has a known history of CAD with a cardiac stent on Eliquis and Plavix. States for the last 2 months she has had increasing back pain worse with movement. At times it radiates down his right leg. Denies any bowel or bladder incontinence. No recent fall or trauma. No fever. Prior similar symptoms: Yes Recent Illness/Hospitalization: No PFSH PFSH Medical History Coronary artery disease Degenerative disc disease Tobacco use Home Medications ?Medication ?Instructions ?Recorded ?Last Taken ?Type aspirin 325 mg tablet 81 mg PO QHS 02/06/18 Unknown History atorvastatin 40 mg tablet 40 mg PO QHS 02/06/18 Unknown History clopidogrel 75 mg tablet 75 mg PO QHS 02/06/18 Unknown History tamsulosin 0.4 mg capsule 0.4 mg PO QHS 07/11/22 Unknown History apixaban 5 mg (74 tabs) tablets in 2.5 mg PO BID 06/05/24 Unknown History a dose pack (Eliquis DVT-PE Treat 30D Start) methylprednisolone 4 mg tablets in See Rx Instructions PO .COMPLEX 06/05/24 Unknown Rx a dose pack (Medrol (Dean)) #36 tabs Allergy/AdvReac Type Severity Reaction Status Date / Time codeine Allergy Itching Verified 12/12/22 12:08 gabapentin Allergy Other Verified 12/12/22 12:08 oxycodone Allergy Itching Verified 12/12/22 12:08 Opioids - Morphine Analogues AdvReac MAKES ME Verified 12/12/22 12:08 SICK Surgical History History of left hip replacement History of heart artery stent Social History Smoking Status: Current every day smoker tobacco type: cigarettes ROS ROS ED ROS Narrative Denies recent illness. Acute on chronic back pain. Constitutional Constitutional ED: Denies fever(s) Eyes Eyes: Denies blurry vision ENT ENT ED: Denies ear pain Cardiovascular Cardiovascular: Denies chest pain Respiratory/Chest Respiratory/Chest: Denies dyspnea Gastrointestinal Gastrointestinal: Denies abdominal pain, constipation, diarrhea, melena, nausea or vomiting Genitourinary Genitourinary ED: Denies dysuria or hematuria Musculoskeletal Musculoskeletal: Reports back pain; Denies arthralgias or myalgias Integumentary Denies abscess or Abrasions Neurologic Neurologic: Denies headache(s) Psychiatric Psychiatric: Denies anxiety Endocrine Endocrinology: Denies cold intolerance Hematologic/Lymphatic Hematologic/Lymphatic: Denies lymphadenopathy Allergic/Immunologic Allergic/Immunologic ED: Denies mouth swelling, tongue swelling or urticaria EXAM Physical Exam Narrative Exam Narrative: 71-year-old male no acute distress sitting upright in a chair. Vital signs are stable afebrile. H EENT exam unremarkable. Lungs clear to auscultation. Heart regular rhythm no murmur rate about 70. Chest wall ribs nontender. Abdomen soft nontender. No paraspinal mass. Moving all 4 extremities. 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 Dorsi plantarflexion intact. Positive straight leg raise test on the right. He is able to stand he has a cane he can stand up and left his own weight. Back he has a well-healed prior lumbar back surgery scar. His tenderness is primarily over the right SI joint. And he has a positive straight leg raise. There is no cauda equina. No saddle anesthesia. Normal medial thigh sensation. Again he is able to stand. He is awake and alert. No focal motor deficits. Const Vital Signs: 06/05/24 18:01 Temperature 98.1 F Temperature Source Oral Pulse Rate 70 Respiratory Rate 16 Blood Pressure 114/74 Blood Pressure Mean 87 Pulse Ox 99 Oxygen Delivery Method Room Air Positive well nourished and well developed; Negative for obese, cachectic, contractures or unkempt General Appearance ED: well developed and NAD; Negative for unkempt, cachectic, contractures or pallor Nutritional Appearance: Negative for cachectic or obese HEENT Reports moist mucous membranes Negative for trauma or tenderness Eyes PERRL and EOMs intact bilaterally Neck no lymphadenopathy, supple and no JVD General: Negative for tenderness Thyroid: Negative for other Resp normal respiratory effort and clear to auscultation bilaterally Effort and Inspection: Negative for pain with movement Auscultation: Negative for rales, rhonchi or wheezes Cardio regular rhythm, S1 normal heart sound, S2 normal heart sound and no murmurs GI normal to inspection, nondistended, normoactive bowel sounds, soft to palpation, non-tender, non-distended and no masses Palpation: Negative for tender, guarding or rebound tenderness present Back/Spine normal to inspection and no thoracic nor lumbar tenderness Back/Spine Narrative: Right SI tenderness. Well-healed lumbar surgical scar. Cervical Spine: Negative for cervical spine tenderness Lumbar Spine / Lower Back: straight leg raise positive right Extremity normal to inspection General Extremety ED: Negative for edema or tenderness General Extremity: Negative for edema Neuro no sensory deficits noted Sensorium / Orientation: Negative for confused or lethargic Motor Exam: strength 5/5 throughout Psych mental status grossly normal Appearance: Negative for unkempt Attitude: No agitated and No other Mood & Affect: Negative for depressed, sad or tearful Skin no rashes or lesions noted and no wounds General Skin Exam: Negative for jaundice or pallor Lesions: No lesion noted Rashes: No rashes noted Trauma: Negative for abrasion or puncture Wounds: Negative for wounds noted MDM MDM MDM Narrative Medical decision making narrative: 71-year-old male acute on chronic back pain with lumbar radiculopathy. He will be placed on Decadron. He has been instructed to follow-up with both Dr. Eddy of pain management and Dr. Rodriguez of orthopedic spine. Patient may need outpatie nt imaging. He does not need an acute MRI at this time. He has both good motor strength and sensation. Discharge Plan Triage Chief Complaint: Back ED Provider: Nicolas Quiñones Dx/Rx/DC Orders Clinical Impression: Back pain, Radiculopathy, History of degenerative joint disease, History of CAD (coronary artery disease), Chronic anticoagulation Instructions: ED Back Pain (Acute or Chronic) Prescriptions: New methylprednisolone [Medrol (Dean)] 4 mg tablets,dose pack See Rx Instructions .ROUTE .COMPLEX Qty: 36 0RF Rx Instructions: orally per package directions Take 8 pills a 32 mg day 1. Then 7 pills of 28 mg day 2. 6 pills or 24 mg day 3. 5 pills or 20 mg day 4. Then 4 pills or 16 mg day 5. Then 3 pills or 12 mg day 6. Then 1 pill/day days 7 8 and 9. Then you are finished. No Action atorvastatin 40 MG tablet 40 mg PO QHS aspirin 325 MG tablet 81 mg PO QHS clopidogrel 75 MG tablet 75 mg PO QHS tamsulosin 0.4 mg Capsule 0.4 mg PO QHS Eliquis DVT-PE Treat 30D Start 5 mg (74 tabs) tablets,dose pack 2.5 mg PO BID [facility] Referrals: Jozef Eddy MD [Med Staff - Active Staff] - As soon as possible Sánchez Rodriguez MD [Med Staff - Active Staff] - [facility] soon as possible [facility] [Primary Care Provider] - Activity Restrictions/Additional Instructions: Take the steroids daily until gone. Hopefully this will decrease the inflammation in your back and help with pain. Call and follow-up with a pain management doctor Dr. Eddy. Call the office of the back surgeon Dr. Rodriguez and get an appointment to be seen as soon as possible. Print Language: Tuvaluan Disposition Disposition: Home, Self Care
== END 2024-06-05 20:16 | disposition home or self-care (01) ==
PROVIDERS: Emergency Provider Emergency Medicine; Referring Provider Emergency Medicine; Visit Provider Emergency Medicine
DX: M54.16 Radiculopathy, lumbar region (principal); I25.10 Atherosclerotic heart disease of native coronary artery without angina pectoris; F17.210 Nicotine dependence, cigarettes, uncomplicated; Z95.5 Presence of coronary angioplasty implant and graft; Z79.899 Other long term (current) drug therapy; Z79.01 Long term (current) use of anticoagulants
CPT/HCPCS: 99282

== ENCOUNTER 2024-06-15 15:13 | Emergency (ER) | payer OTHER, SELFPAY ==
[2024-06-15 15:13] VITALS: BP 205/186; PULSE 64; RESP 18; TEMP 36.7; O2SAT 96
== END 2024-06-15 15:32 | disposition left against medical advice (07) ==
LOC: ED 15:34
DX: Z53.21 Procedure and treatment not carried out due to patient leaving prior to being seen by health care provider (principal)

== ENCOUNTER 2024-11-20 09:58 | Observation (INO) | payer OTHER, SELFPAY ==
[2024-11-20 09:59] VITALS: BP 168/90; PULSE 77; RESP 16; TEMP 36.8; O2SAT 96; BMI 34.0
--- NOTE | 2024-11-20 10:22 | EDS_ITS ---
HPI History of Present Illness Chief Complaint: Back Informant: patient and family Narrative Narrative: Patient is a 79-year-old male with past medical history of coronary artery disease hyperlipidemia and previous PE currently on Eliquis. He also has a history of tobacco abuse as well as degenerative disc disease for which she has had previous lumbar surgeries. He states that he follows with the [facility] secondary to this and has back pain on a daily basis. He states he is in the process of getting radiofrequency ablation of the nerves of the low back to help control pain but that has not been performed yet because they do not have the proper staff at the [facility]. he states that he has to get up on average 3 times a night to urinate. He states that after doing that multiple times last night he noticed increased pain on the right low back that was worse with motion. It is to the point where he cannot ambulate secondary to the pain with ambulation and therefore EMS was called and he was brought in for evaluation. Patient does live alone. He denies any loss of bowel or bladder control or IV drug use. PFSH PFSH Medical History Coronary artery disease Degenerative disc disease Tobacco use Home Medications ?Medication ?Instructions ?Recorded ?Last Taken ?Type aspirin 325 mg tablet 81 mg PO QHS 02/06/18 Unknow n History atorvastatin 40 mg tablet 40 mg PO QHS 02/06/18 Unknow n History clopidogrel 75 mg tablet 75 mg PO QHS 02/06/18 Unknow n History tamsulosin 0.4 mg capsule 0.4 mg PO QHS 07/11/22 Unkno wn History apixaban 5 mg (74 tabs) tablets in 2.5 mg PO BID 06/05 Unknown History a dose pack (Eliquis DVT-PE Treat 30D Start) methylprednisolone 4 mg tablets in See Rx Instructions PO .COMPLEX 06/05/24 Unknown Rx a dose pack (Medrol (Dean)) #36 tabs Allergy/AdvReac Type Severity Reaction Status Date / Time codeine Allergy Itching Verified 11/20/24 10:05 gabapentin Allergy Other Verified 11/20/24 10:05 oxycodone Allergy Itching Verified 11/20/24 10:05 Opioids - Morphine Analogues AdvReac MAKES ME Verified 11/20/24 10:05 SICK Surgical History History of left hip replacement History of heart artery stent Social History Smoking Status: Current every day smoker tobacco type: cigarettes ROS ROS ED Constitutional Constitutional ED: Denies chills or fever(s) Eyes Eyes: Denies change in vision ENT ENT ED: Denies sore throat Cardiovascular Cardiovascular: Denies chest pain Respiratory/Chest Respiratory/Chest: Denies cough or dyspnea Gastrointestinal Gastrointestinal: Denies abdominal pain, diarrhea, nausea or vomiting Genitourinary Genitourinary ED: Reports urinary frequency; Denies dysuria or hematuria Musculoskeletal Musculoskeletal: Reports back pain Integumentary Denies rash Neurologic Neurologic: Denies headache(s), paresthesias or weakness Hematologic/Lymphatic Hematologic/Lymphatic: Reports easy bleeding and easy bruising EXAM Physical Exam Const Vital Signs: 11/20/24 09:59 Temperature 98.2 F Temperature Source Oral Pulse Rate 77 Respiratory Rate 16 Blood Pressure 168/90 H Blood Pressure Mean 116 Pulse Ox 96 Oxygen Delivery Method Room Air Positive well nourished and well developed General Appearance ED: well developed; Negative for pallor HEENT HEENT Narrative: Normocephalic atraumatic Eyes PERRL and EOMs intact bilaterally General Eye ED: Negative for scleral icterus Neck supple Neck Narrative: No nuchal rigidity or meningeal signs Resp normal respiratory effort Resp Narrative: Breath sounds are diminished throughout with diffuse expiratory wheeze and faint rhonchi in the bases consistent with history of smoking but no signs of respiratory distress Cardio regular rate and regular rhythm Rate: other Other Details: Radial and carotid pulses are equal and symmetric GI normal to inspection, nondistended, normoactive bowel sounds, non-tender, non- distended and no masses GI Narrative: No voluntary guarding or rigidity or pulsatile mass Auscultation: normoactive bowel sounds Palpation: soft Back/Spine Back/Spine Narrative: No saddle anesthesia. No clonus or Babinski. Patellar reflexes are +1 out of 4 bilaterally. Positive straight leg raise at approximately 30 degrees on right. No obvious bony deformity or step-off of the thoracic or lumbar spine No overlying soft tissue skin changes to suggest trauma or infection Extremity Extremity Narrative: Patient has chronic stasis changes to the bilateral lower leg There is +1-2 pitting edema to the bilateral lower extremities that is equal and symmetric Capillary refills less than 3 seconds Neuro oriented x3, CN's II-XII intact bilaterally and no sensory deficits noted Sensorium / Orientation: alert Psych mental status grossly normal Skin Skin Narrative: Chronic stasis changes to the bilateral lower extremities as documented above without secondary findings to suggest infection General Skin Exam: Negative for jaundice or pallor MDM MDM MDM Narrative Medical decision making narrative: Patient arrived to the ER hypertensive otherwise with stable vitals. He reported a longstanding history of low back pain and denied any recent trauma or sick symptoms such as fevers chills nausea vomiting diarrhea or dysuria. He also denied any loss of bowel or bladder control going against cauda equina syndrome and he denied IV drug use going against epidural abscess. He also states that his back procedures have not been recent going against discitis. At this time there are no report or signs of trauma so I have low concern for a compression fracture or spondylolisthesis. The pain is worse with motion it does not radiate towards the abdomen and therefore I feel this is musculoskel etal and not secondary to UTI/pyelonephritis or kidney stone. Therefore I felt no need for emergent imaging or laboratory study. The patient was given IV morphine Decadron and Benadryl for pain control and oral Valium for muscle relaxation. This helped reduce the pain while at rest but he still has significant pain with motion and could not stand and walk. Therefore as he lives alone and is unable to ambulate is not safe for him to be discharged. I discussed transferring the patient to the [facility] where he receives his medical care and has had his previous procedures but they have no beds available and they recommended admission to our facility if needed. I do believe admission is necessary as the patient cannot ambulate and therefore not take care of himself and perform his ADLs. Secondary to this the case was discussed with the hospitalist who agrees to accept the patient for further care History & Record Review Discussion w/independent historian: Patient and Family Management Discussion w/another healthcare provider: Hospitalist and Other Discharge Plan Triage Chief Complaint: Back ED Provider: Del Nunes Dx/Rx/DC Orders Clinical Impression: Intractable low back pain, Inability to walk, Hyperlipidemia, Tobacco abuse Prescriptions: No Action atorvastatin 40 MG tablet 40 mg PO QHS aspirin 325 MG tablet 81 mg PO QHS clopidogrel 75 MG tablet 75 mg PO QHS tamsulosin 0.4 mg Capsule 0.4 mg PO QHS Eliquis DVT-PE Treat 30D Start 5 mg (74 tabs) tablets,dose pack 2.5 mg PO BID methylprednisolone [Medrol (Dean)] 4 mg tablets,dose pack See Rx Instructions .ROUTE .COMPLEX Qty: 36 0RF Rx Instructions: orally per package directions Take 8 pills a 32 mg day 1. Then 7 pills of 28 mg day 2. 6 pills or 24 mg day 3. 5 pills or 20 mg day 4. Then 4 pills or 16 mg day 5. Then 3 pills or 12 mg day 6. Then 1 pill/day days 7 8 and 9. Then you are finished. [facility] [Primary Care Provider] - Print Language: Turkmen Disposition Disposition: Acute Care Hospital [facility]
[2024-11-20] MEDS: diazePAM 5 MG Tablet PO (10:46)
[2024-11-20] MEDS: dexAMETHasone 10 MG/ML Vial IV (10:46)
[2024-11-20] MEDS: Ondansetron 4 MG/2 ML Vial IV (10:47)
[2024-11-20] MEDS: DiphenhydrAMINE 50 MG/ML Syringe 12.5 MG IV (10:47)
[2024-11-20] MEDS: Morphine 4 MG/ML Syringe IV ×2 (10:47→13:56)
[2024-11-20 13:50] VITALS: BP 151/79; PULSE 67; RESP 18; O2SAT 95
[2024-11-20 15:18] LABS: Absolute Lymphocyte Count 0.83 X10^3/uL (0.83-4.51); Absolute Neutrophil Count 11.5 X10^3/uL (2.0-7.7); Basophil# 0.05 X10^3/uL; Basophil% 0.4 % (0-1); Hematocrit 52.1 % (40-54); Lymphocyte # 0.83 X10^3/ul (0.83-4.51); Lymphocyte % 6.6 % (19-41); Mean Corp Hgb Conc 32.6 g/dL (32-36); Mean Corpuscular Hgb 32.2 pg (27.0-32.0); Mean Corpuscular Volume 98.7 fL (80-94); Mean Platelet Vol. 9.7 fl (6.2-12.0); Monocyte# 0.11 X10^3/uL; Monocyte% 0.9 % (0-10); NRBC Flagged by Analyzer 0 % (0-5); Neutrophil # 11.54 X10^3/uL (2.7-7.7); Neutrophil % 91.4 % (47-70); Platelet Count 333 K/mm3 (150-450); RBC Distribution Width CV 13.8 % (11.6-14.6); RBC Distribution Width SD 50.2 fl (35.1-43.9); Red Blood Count 5.28 M/mm3 (4.6-6.2); White Blood Count 12.6 K/mm3 (4.4-11.0)
[2024-11-20 15:39] LABS: Bacteria 0 SEEN /hpf (None Seen); Mucous, Urine 0 SEEN /hpf (<or=2+); Squamous Epithelial Cells - UA 0 SEEN /hpf (0-5)
[2024-11-20 15:44] LABS: Color, Urine Yellow (Yellow); Glucose, Dipstick Normal (Normal); Ketone-Dipstick Negative (Negative); Leukocyte Esterase-Dipstick 25 /ul (Negative); Nitrite-Dipstick Negative (Negative); Occult Blood-Urine 10 /ul (Negative); Protein-Dipstick 30 mg/dl (Negative); Urine Bilirubin Dipstick Negative (Negative); Urine Clarity Clear (Clear); Urine Urobilinogen 1 mg/dl (Normal); Urine pH 6.5 (5.0 - 8.0)
[2024-11-20 15:51] LABS: Red Blood Cells-Urine 0-5 SEEN /hpf (0-5); White Blood Cells 0-5 SEEN /hpf (0-5)
--- NOTE | 2024-11-20 16:00 | NURSING ---
Marifer LERMA RN called and Dr. Hennessy texted, notified lab called potassium of 6.6
[2024-11-20 16:01] LABS: Anion Gap 12 (5-15); BUN 16 mg/dL (4-19); Calcium,Total 9.6 mg/dL (7.6-11.0); Carbon Dioxide 24.5 mmol/L (21.0-32.0); Chloride 103 mmol/L (98-108); Creatinine, Serum 1.03 mg/dL (0.70-1.20); EST Glomerular Filtration Rate 74 (>60); Estimated Creatinine Clearance 79.14 ml/min (50-250); Glucose 131 mg/dL (70-99); Potassium 6.6 mmol/L (3.3-5.1); Sodium Level 139 mmol/L (133-145)
--- NOTE | 2024-11-20 16:05 | PCM.HP.STD ---
HPI - General General Date of Admission: 11/20/24 Date of Service: 11/20/24 Chief Complaint: back pain HPI Narrative JUAN TABOR, is a 79-year-old male history of coronary artery disease, BPH, and previous PE on Eliquis as well as history of tobacco abuse and degenerative disc disease with previous lumbar surgeries presented to [facility] ED 11/20/2024 due to back pain. He follows with the [place] due to his back pain which is present on a daily basis, he is in the process of getting scheduled for radiofrequency ablation of the nerves of the low back but it has not been performed yet because of staffing problems at the [place]. Gets up multiple times at night to urinate and after doing that a couple times last night he had increased pain in his right lower back that was worse with motion to the point where he cannot ambulate secondary to pain so EMS was called for patient to be evaluated. In the ED patient afebrile, heart rate 77 with blood pressure 168/90, patient respiratory rate 16 and 96% on room air. Patient given dexamethasone and pain medication but still having difficulty with ambulation so hospitalist contacted for admission. Patient evaluated with daughter at bedside, patient has been having chronic pain for a long time and worse over the past 3 months, reports it is much worse after he has been sitting or laying down, specifically at night when he has to get up to go to the bathroom. He will have brief flares in it will calm down slightly and then flare again. Reports he had plates in his back in 2001 and had a disc cut out the year that Pratik and he feels that the pain originates from there and radiates to the right, it does not go down his leg, he denies any changes in bowel or bladder, no focal deficits. He just notes that over time this is worsening and is making it hard to do ADLs and get around which prompted him to come in. Pain is worse with motion and is aching in quality without any sharp pain. Patient otherwise has negative ROS. Labs resulted after patient evaluated and showed white blood cell count of 12.6, hemoglobin 17 and a BNP of 6.6 however this was hemolyzed so stat repeat ordered PFSH Medical History Coronary artery disease CPAP (continuous positive airway pressure) dependence Degenerative disc disease Depression Former smoker Sleep apnea Smoker Tobacco use Home Medications ?Medication ?Instructions ?Recorded ?Last Taken ?Type atorvastatin 40 mg tablet 20 mg PO QHS 06/12/18 Unknown History clopidogrel 75 mg tablet 75 mg PO QHS 02/06/18 Unknown History tamsulosin 0.4 mg capsule 0.4 mg PO QHS 07/11/22 Unknown History apixaban 5 mg (74 tabs) tablets in 2.5 mg PO BID 06/05/24 Unknown History a dose pack (Eliquis DVT-PE Treat 30D Start) diltiazem HCl 120 mg 120 mg PO Q24H 11/20/24 Unknown History tablet,extended release 24 hr Allergy/AdvReac Type Severity Reaction Status Date / Time codeine Allergy Itching Verified 11/20/24 10:05 gabapentin Allergy Other Verified 11/20/24 10:05 oxycodone Allergy Itching Verified 11/20/24 10:05 Opioids - Morphine Analogues AdvReac MAKES ME Verified 11/20/24 10:05 SICK Surgical History History of heart artery stent History of left hip replacement Social History Smoking Status: Current every day smoker tobacco type: cigarettes ROS ROS Narrative General: Denies fever/chills HENT: Denies headache, denies stuffy nose, denies sore throat EYES: Denies changes in vision Resp: Denies cough, denies shortness of breath Cardiac: Denies chest pain GI: Denies abdominal pain, denies changes in bowel, denies nausea/vomiting : Urinates frequently but this is not new Extremity: Has some chronic swelling in his lower extremities and uses sequential compression devices at home which helps significantly MSK: Denies weakness, has pain in the center of his back that is aching and radiates towards the right side of his back Neuro: Denies any numbness/tingling Heme: Denies any bleeding or bruising Skin: Denies new rashes Psychiatric: No complaints voiced Vital Signs Vital Signs Vital Signs: 11/20/24 09:59 11/20/24 13:50 Temperature 98.2 F Temperature Source Oral Pulse Rate 77 67 Respiratory Rate 16 18 Blood Pressure 168/90 H 151/79 H Blood Pressure Mean 116 103 Pulse Ox 96 95 Oxygen Delivery Method Room Air Weight Weight: 116.8 kg Body Mass Index (BMI) 34.0 Physical Exam Narrative General: Alert, no apparent distress HEENT: Atraumatic, normocephalic Eyes: Anicteric, normal conjunctiva, extraocular movements grossly intact Neck: Supple Respiratory: Clear to auscultation bilaterally, normal respiratory effort Cardiovascular: Regular rate and rhythm GI: Nontender Extremities: Some trace lower extremity edema which she reports is chronic Musculoskeletal: Moving all extremities Neuro: No overt focal neurological deficits Skin: Has some chronic and vague erythematous changes on both bilateral lower extremities again which she does not note is new Psych: Cooperative Results Lab / Micro Data 11/20/24 15:00 11/20/24 15:00 Labs: Laboratory Results - last 24 hr 11/20/24 15:00: WBC 12.6 H, RBC 5.28, Hgb 17.0 H, Hct 52.1, MCV 98.7 H, MCH 32.2 H, MCHC 32.6, RDW Std Deviation 50.2 H, RDW Coeff of Emily 13.8, Plt Count 333, MPV 9.7, Immature Gran % (Auto) 0.700, Neut % (Auto) 91.4 H, Lymph % (Auto) 6.6 L, [place] % (Auto) 0.9, Eos % (Auto) 0.0, Baso % (Auto) 0.4, Absolute Neuts (auto) 11.5 H, Absolute Lymphs (auto) 0.83, Nucleated RBC % 0, Sodium 139, Potassium 6.6 H*, Chloride 103, Carbon Dioxide 24.5, Anion Gap 12, BUN 16, Creatinine 1.03, Estim Creat Clear Calc 79.14, Est GFR (MDRD) Non-Af 74, BUN/Creatinine Ratio 15.0, Glucose 131 H, Calcium 9.6 11/20/24 15:31: Urine Color Yellow, Urine Clarity Clear, Urine pH 6.5, Ur Specific [place] 1.020, Urine Protein 30 H, Urine Glucose (UA) Normal, Urine Ketones Negative, Urine Occult Blood 10 H, Urine Nitrite Negative, Urine Bilirubin Negative, Urine Urobilinogen 1 H, Ur Leukocyte Esterase 25 H, Urine RBC 0-5 SEEN, Urine WBC 0-5 SEEN, Ur Squamous Epith Cells 0 SEEN, Urine Bacteria 0 SEEN, Urine Mucus 0 SEEN Assessment & Plan Assessment/Plan (1) Intractable low back pain: PLAN: Plan # Acute on chronic low back pain -Does report having a disc cut out the year that Pratik and then subsequently had plates placed in 2001 -Patient follows with the [facility] but no beds present at the [facility] so patient to be admitted to our institution -Patient reports his pain has been worse since June and he will have flares like this specifically with movement and notably worsened after he has been sitting or laying and then sometimes improves throughout the day only to flare again -Patient endorses having an MRI at the [place] in the past couple of months, will request these records -Pain control-patient reports oxycodone causes itching but using with IV Benadryl negates the itching though can make him sleepy at times, has not tried hydrocodone before, also tolerated morphine without significant difficulty in the ED. will try as needed hydrocodone and as needed morphine with topical diclofenac to try to avoid benadryl if possible -Will schedule bowel regimen -PT/OT -Given patient has intermittently had these exacerbations and it is no different from previous and he has no new neurologic or alarm symptoms do not think patient needs acute or new imaging, will request MRI results from [facility], if not able to improve with conservative measures could always consider pain management consult #BMP w/ elevated potassium -BMP with potassium of 6.6 however it appears this is hemolyzed -Will plan to monitor on telemetry while repeating stat BMP, if still elevated will give K lowering cocktail though with normal kidney function and patient not taking any potassium or spironolactone suspect that this may just be falsely elevated # History of PE on Eliquis -Patient reports it has been several years since he had a PE, will hold Eliquis temporarily in the event patient would need pain management or any intervention, patient begins to improve would resume Eliquis # History of coronary artery disease -Heart healthy diet -Patient on clopidogrel, continue #Chronic BPH with obstruction -Continue home medications #Hypertension -Continue diltiazem with holding parameters #Tobacco use -Advise cessation -Nicotine replacement available if desired #DVT ppx: SCDs Guillermina Hennessy MD Charges/Coding Visit Charges Inpatient E&M: 04955 Init Hosp L2
[2024-11-20 16:09] VITALS: BP 143/68; PULSE 72; RESP 18; TEMP 36.7; O2SAT 96
[2024-11-20 17:07] VITALS: BMI 34.2
[2024-11-20 17:15] VITALS: BP 162/88; PULSE 81; RESP 18; TEMP 36.6; O2SAT 94
[2024-11-20 17:29] LABS: Anion Gap 12 (5-15); BUN 16 mg/dL (4-19); BUN/Creat Ratio 19.7 RATIO (10-20); Calcium,Total 9.4 mg/dL (7.6-11.0); Carbon Dioxide 25.4 mmol/L (21.0-32.0); Creatinine, Serum 0.79 mg/dL (0.70-1.20); EST Glomerular Filtration Rate 91 (>60); Estimated Creatinine Clearance 102.38 ml/min (50-250); Glucose 174 mg/dL (70-99); Potassium 4.8 mmol/L (3.3-5.1); Sodium Level 142 mmol/L (133-145)
[2024-11-20 17:42] LABS: Chloride 105 mmol/L (98-108)
[2024-11-20 19:09] VITALS: O2SAT 94
[2024-11-20 21:02] VITALS: BP 136/72; PULSE 93; RESP 17; TEMP 36.6; O2SAT 92
[2024-11-20] MEDS: Clopidogrel Bisulfate 75 MG Tablet PO (21:04)
[2024-11-20] MEDS: Tamsulosin HCl 0.4 MG Capsule PO (21:04)
[2024-11-20] MEDS: Senna/Docusate Sodium 1 Tablet 2 TABLET PO (21:04)
[2024-11-20] MEDS: Atorvastatin Calcium 20 MG Tablet PO (21:05)
[2024-11-21 01:56] VITALS: BP 129/74; PULSE 68; RESP 15; TEMP 36.6; O2SAT 94
[2024-11-21 05:57] LABS: Absolute Lymphocyte Count 1.05 X10^3/uL (0.83-4.51); Absolute Neutrophil Count 11.6 X10^3/uL (2.0-7.7); Basophil# 0.02 X10^3/uL; Basophil% 0.2 % (0-1); Hematocrit 46.7 % (40-54); Hemoglobin 15.2 g/dL (13.0-16.5); Lymphocyte # 1.05 X10^3/ul (0.83-4.51); Mean Corp Hgb Conc 32.5 g/dL (32-36); Mean Corpuscular Hgb 33.1 pg (27.0-32.0); Mean Corpuscular Volume 101.7 fL (80-94); Mean Platelet Vol. 9.5 fl (6.2-12.0); Monocyte# 0.34 X10^3/uL; Monocyte% 2.6 % (0-10); NRBC Flagged by Analyzer 0 % (0-5); Neutrophil % 88.4 % (47-70); Platelet Count 315 K/mm3 (150-450); RBC Distribution Width CV 13.8 % (11.6-14.6); RBC Distribution Width SD 52.5 fl (35.1-43.9); Red Blood Count 4.59 M/mm3 (4.6-6.2); White Blood Count 13.1 K/mm3 (4.4-11.0)
[2024-11-21 06:22] LABS: Anion Gap 10 (5-15); BUN 17 mg/dL (4-19); BUN/Creat Ratio 17.1 RATIO (10-20); Calcium,Total 9.3 mg/dL (7.6-11.0); Carbon Dioxide 26.1 mmol/L (21.0-32.0); Chloride 106 mmol/L (98-108); Creatinine, Serum 0.97 mg/dL (0.70-1.20); EST Glomerular Filtration Rate 80 (>60); Estimated Creatinine Clearance 84.44 ml/min (50-250); Glucose 136 mg/dL (70-99); Potassium 4.8 mmol/L (3.3-5.1); Sodium Level 142 mmol/L (133-145)
[2024-11-21 07:24] VITALS: O2SAT 95
[2024-11-21 08:59] VITALS: BP 125/115; PULSE 80; RESP 16; TEMP 36.3; O2SAT 92
[2024-11-21] MEDS: 0.9% Saline Lock 10 ML Syringe IV ×2 (09:11→14:13)
[2024-11-21] MEDS: Morphine 2 MG/ML Syringe IV ×2 (09:11→14:13)
[2024-11-21] MEDS: dilTIAZem CD 120 MG Capsule PO (09:11)
[2024-11-21] MEDS: Senna/Docusate Sodium 1 Tablet 2 TABLET PO (09:11)
[2024-11-21] MEDS: Arthritis Pain Compound 60 CLICK TUBE TOPICAL (09:12)
--- NOTE | 2024-11-21 09:13 | PN.HOSP_ITS ---
Reason for Visit Reason for Visit: Diagnoses Other low back pain (11/20/24) Objective Data Objective Data Vital Signs: Vital Signs Temp Pulse Resp BP Pulse Ox O2 Del Method O2 Flow Rate 97.3 F L 80 16 125/115 H 92 Nasal Cannula 2 11/21/24 08:59 11/21/24 08:59 11/21/24 08:59 11/21/24 08:59 11/21/24 08:59 11/21/24 08:59 11/21/24 08:59 Oxygen Flow Rate (L/min) 2 Oxygen Delivery Method Nasal Cannula Weight: 117.934 kg Body Mass Index (BMI) 34.2 Lab / Micro Data 11/21/24 05:12 11/21/24 05:12 Labs: Laboratory Results - last 24 hr 11/20/24 15:00: WBC 12.6 H, RBC 5.28, Hgb 17.0 H, Hct 52.1, MCV 98.7 H, MCH 32.2 H, MCHC 32.6, RDW Std Deviation 50.2 H, RDW Coeff of Emily 13.8, Plt Count 333, MPV 9.7, Immature Gran % (Auto) 0.700, Neut % (Auto) 91.4 H, Lymph % (Auto) 6.6 L, Perkins % (Auto) 0.9, Eos % (Auto) 0.0, Baso % (Auto) 0.4, Absolute Neuts (auto) 11.5 H, Absolute Lymphs (auto) 0.83, Nucleated RBC % 0, Sodium 139, Potassium 6.6 H*, Chloride 103, Carbon Dioxide 24.5, Anion Gap 12, BUN 16, Creatinine 1.03, Estim Creat Clear Calc 79.14, Est GFR (MDRD) Non-Af 74, BUN/Creatinine Ratio 15.0, Glucose 131 H, Calcium 9.6 11/20/24 15:31: Urine Color Yellow, Urine Clarity Clear, Urine pH 6.5, Ur Specific [place] 1.020, Urine Protein 30 H, Urine Glucose (UA) Normal, Urine Ketones Negative, Urine Occult Blood 10 H, Urine Nitrite Negative, Urine Bilirubin Negative, Urine Urobilinogen 1 H, Ur Leukocyte Esterase 25 H, Urine RBC 0-5 SEEN, Urine WBC 0-5 SEEN, Ur Squamous Epith Cells 0 SEEN, Urine Bacteria 0 SEEN, Urine Mucus 0 SEEN 11/20/24 16:20: Sodium 142, Potassium 4.8, Chloride 105, Carbon Dioxide 25.4, Anion Gap 12, BUN 16, Creatinine 0.79, Estim Creat Clear Calc 102.38, Est GFR (MDRD) Non-Af 91, BUN/Creatinine Ratio 19.7, Glucose 174 H, Calcium 9.4 11/21/24 05:12: WBC 13.1 H, RBC 4.59 L, Hgb 15.2, Hct 46.7, MCV 101.7 H, MCH 33.1 H, MCHC 32.5, RDW Std Deviation 52.5 H, RDW Coeff of Emily 13.8, Plt Count 315, MPV 9.5, Immature Gran % (Auto) 0.800, Neut % (Auto) 88.4 H, Lymph % (Auto) 8.0 L, Perkins % (Auto) 2.6, Eos % (Auto) 0.0, Baso % (Auto) 0.2, Absolute Neuts (auto) 11.6 H, Absolute Lymphs (auto) 1.05, Nucleated RBC % 0, Sodium 142, Potassium 4.8, Chloride 106, Carbon Dioxide 26.1, Anion Gap 10, BUN 17, Creatinine 0.97, Estim Creat Clear Calc 84.44, Est GFR (MDRD) Non-Af 80, BUN/Creatinine Ratio 17.1, Glucose 136 H, Calcium 9.3
--- NOTE | 2024-11-21 09:27 | CASEMGMT ---
LINDSEY called [facility] PORTILL[facility] in [place] to check on patient's service connection. Patient is not service connected enough to qualify for SNF stay under [facility]. Livan said that they have that patient has Medicare A and B and for Life. LINDSEY and SANDRA ESQUIVEL will follow for d/c planning. Winifred CUNNINGHAM
[2024-11-21] MEDS: HYDROcodone Bitartrate/Apap 5/325 Tablet PO (10:51)
--- NOTE | 2024-11-21 10:52 | CASEMGMT ---
Addendum entered by Jeffrey Sheffield 11/21/24 12:15: Per Dr Troncoso, pt to f/u with pain mgnt. SANDRA ESQUIVEL to room. Pt is aware pain mgnt is being recommended. He wishes to f/u @ [place] PCP and have them refer him back to [place] pain mgnt, instead of going to another pain mgnt specialist through [facility]. Addendum entered by Jeffrey Sheffield 11/21/24 11:37: Pt goes to [facility] and states he already has an upcoming appt scheduled for mid-November. Addendum entered by Jeffrey Sheffield 11/21/24 11:36: Script for FWW obtained from Dr Troncoso. Pt provided w/FWW from [employer] and he signed consignment form. Pt given copy of form. Script and consignment form sent to [facility] via [employer] along w/note stating FWW was already provided to pt. Pt states his daughter will be taking him home @ discharge. Original Note: SANDRA ESQUIVEL NOTE: Per therapy, no additional therapy recommended. FWW is recommended. SANDRA ESQUIVEL to room. Pt sitting up in chair in room. Introduced self and role. Pt lives alone, denies having any concerns w/discharging home. Discussed FWW and made aware this is recommended by therapy. He states he felt it was very helpful when he used it this AM w/therapy and he would like to get one and is agreeable to having it billed through [facility]. Discussed DME [employer], chooses [facility]. Marci BLOOM RN, CM
[2024-11-21 14:08] VITALS: BP 99/70; PULSE 60; RESP 16; TEMP 37; O2SAT 94
--- NOTE | 2024-11-21 14:08 | PCM.DC.SUM ---
Providers Date of Admission: 11/20/24 Date of Discharge: 11/21/24 Primary Care Physician: [facility] Reason For Visit: BACK PAIN Diagnosis Discharge Diagnosis (1) Intractable low back pain: Status: Acute Code(s): M54.59 - Other low back pain Medications at Discharge Home Medications atorvastatin 40 mg tablet 20 mg PO QHS cholesterol 02/06/18 clopidogrel 75 mg tablet 75 mg PO QHS anti platelet 02/06/18 tamsulosin 0.4 mg capsule 0.4 mg PO QHS prostate 07/11/22 apixaban 5 mg (74 tabs) tablets in a dose pack (Eliquis DVT-PE Treat 30D Start) 2.5 mg PO BID blood thinner 06/05/24 diltiazem HCl 120 mg tablet,extended release 24 hr 120 mg PO Q24H heart rate 11/20/24 multivitamin (Daily Multi-Vitamin tablet) 1 tab PO DAILY vitamin 11/20/24 hydrocodone-acetaminophen 5-325mg 5mg-325mg 1 tab PO Q6H PRN pain 7 days #14 tabs 11/21/24 lidocaine 4 % topical patch 1 patch topical DAILY PRN pain #15 ea 11/21/24 sennosides 8.6 mg-docusate sodium 50 mg tablet (Stimulant Laxative Plus) 2 tab PO BID #60 tabs 11/21/24 Hospital Course Operations None Procedures None Summary of Care Provided Minutes Spent on Discharge: 25 Hospital Course: Mr. Carter patient has a history of chronic low back pain since [place]. He was in the [employer] and had an injury which required discectomy and 1977 has had ongoing issues since that point in time. He was scheduled for radiofrequency ablation of the nerves in his low back but had not been performed due to issues with the procedure at the [place]. The plan is to reschedule this in the near future. He stated he has been taking all tramadol only as needed and was given a prescription about a month ago. He states is not taking it on a daily basis. He is only take 1 tablet daily. Patient reports that he gets up multiple times at night to urinate due to his diuretic use and prostate issues. He reported that over the last couple nights prior to presentation he had increased pain in the right lower back that was worse with motion to the point where he is not able to get out of bed well and had significant difficulty ambulating so the EMS was called. Patient states typically morning is difficult for him and after sitting in his recliner for. Time he states otherwise his pain is fairly minimal but these are his problems period. Vital signs in the emergency department were overtly unremarkable. He was given Decadron and pain medication but was still having difficulty with ambulation so he was admitted to the observation the hospital. He had no bladder or bowel changes and no focal deficits and he had no radicular symptoms. His CBC showed a slight leukocytosis which has normalized by morning. Initial BMP showed a potassium of 6.6 but this appeared to be hemolyzed as a stat repeat was normal. He was placed on Quincy and topical pain relief as well as as needed morphine. He was seen by physical and Occupational Therapy and did extremely well. They felt that he needed no ongoing therapy services at the time of discharge and he was able to ambulate 210 feet utilizing a wheeled walker and modified independence. Patient does use a wheeled walker at baseline as well. It was felt that he had no need for skilled therapy and discharged home with a safety plan of care. We we will discharge him with Quincy for 7 days and encouraged him to follow-up with pain management at [place]. We instructed him to hold the Ultram while he was on Quincy and patient voiced understanding. We strongly [facility] as this is most likely to make the biggest difference in his symptoms. Patient was discharged home on 11/21/2024 in stable condition. Discharge diagnoses: Acute on chronic low back pain Quality ambulation History of PE chronic BPH with obstruction Hyperlipidemia MICHAEL Tobacco abuse Obesity Physical Exam Const alert, oriented x3, no apparent distress, no limitations and well nourished; Negative for average body habitus or healthy appearing Constitutional Narrative: Older, white male, sitting the chair at the bedside, appears comfortable, nontoxic, obese General Appearance: cooperative, comfortable, well kempt and well developed Exam Limitations: no limitations Nutritional Appearance: obese HEENT normocephalic, head/scalp atraumatic and moist oral mucous membranes HEENT Narrative: Mallampati 3, no thrush Eyes EOMs intact bilaterally and conjunctivae normal Eyes Narrative: No scleral icterus Neck supple Neck Narrative: Trachea midline Resp normal respiratory effort, no retractions, no use of accessory muscles and clear to auscultation bilaterally Auscultation: Negative for rales, rhonchi or wheezes Cardio regular rate, regular rhythm, S1 normal heart sound, S2 normal heart sound, no murmurs, no rub, no gallops and no clicks GI normal to inspection, nondistended, normoactive bowel sounds, soft to palpation and non-tender Extremity Extremity Narrative: 1+ bilateral extremity pitting edema with skin changes consistent with venous stasis no cyanosis or clubbing Skin skin turgor normal, no jaundice, no petechiae and no mottling Neuro oriented x3, moves all extremities, no focal motor deficits and no sensory deficits noted Speech: speech normal Psych affect normal Psych Narrative: Interacts appropriately Weight / BMI Weight Weight: 117.934 kg Body Mass Index (BMI) 34.2 ABG / Lab / Microbiology Data 11/21/24 05:12 11/21/24 05:12 Laboratory: Laboratory Results - last 24 hr 11/20/24 15:00: WBC 12.6 H, RBC 5.28, Hgb 17.0 H, Hct 52.1, MCV 98.7 H, MCH 32.2 H, MCHC 32.6, RDW Std Deviation 50.2 H, RDW Coeff of Emily 13.8, Plt Count 333, MPV 9.7, Immature Gran % (Auto) 0.700, Neut % (Auto) 91.4 H, Lymph % (Auto) 6.6 L, [place] % (Auto) 0.9, Eos % (Auto) 0.0, Baso % (Auto) 0.4, Absolute Neuts (auto) 11.5 H, Absolute Lymphs (auto) 0.83, Nucleated RBC % 0, Sodium 139, Potassium 6.6 H*, Chloride 103, Carbon Dioxide 24.5, Anion Gap 12, BUN 16, Creatinine 1.03, Estim Creat Clear Calc 79.14, Est GFR (MDRD) Non-Af 74, BUN/Creatinine Ratio 15.0, Glucose 131 H, Calcium 9.6 11/20/24 15:31: Urine Color Yellow, Urine Clarity Clear, Urine pH 6.5, Ur Specific [place] 1.020, Urine Protein 30 H, Urine Glucose (UA) Normal, Urine Ketones Negative, Urine Occult Blood 10 H, Urine Nitrite Negative, Urine Bilirubin Negative, Urine Urobilinogen 1 H, Ur Leukocyte Esterase 25 H, Urine RBC 0-5 SEEN, Urine WBC 0-5 SEEN, Ur Squamous Epith Cells 0 SEEN, Urine Bacteria 0 SEEN, Urine Mucus 0 SEEN 11/20/24 16:20: Sodium 142, Potassium 4.8, Chloride 105, Carbon Dioxide 25.4, Anion Gap 12, BUN 16, Creatinine 0.79, Estim Creat Clear Calc 102.38, Est GFR (MDRD) Non-Af 91, BUN/Creatinine Ratio 19.7, Glucose 174 H, Calcium 9.4 11/21/24 05:12: WBC 13.1 H, RBC 4.59 L, Hgb 15.2, Hct 46.7, MCV 101.7 H, MCH 33.1 H, MCHC 32.5, RDW Std Deviation 52.5 H, RDW Coeff of Emily 13.8, Plt Count 315, MPV 9.5, Immature Gran % (Auto) 0.800, Neut % (Auto) 88.4 H, Lymph % (Auto) 8.0 L, [place] % (Auto) 2.6, Eos % (Auto) 0.0, Baso % (Auto) 0.2, Absolute Neuts (auto) 11.6 H, Absolute Lymphs (auto) 1.05, Nucleated RBC % 0, Sodium 142, Potassium 4.8, Chloride 106, Carbon Dioxide 26.1, Anion Gap 10, BUN 17, Creatinine 0.97, Estim Creat Clear Calc 84.44, Est GFR (MDRD) Non-Af 80, BUN/Creatinine Ratio 17.1, Glucose 136 H, Calcium 9.3 D/C Instructions Discharge Diet: Low fat / Low cholesterol Discharge Activity: Return to Normal Activity DC O2, CPAP, BIPAP Needs Home O2 Discharge instructions: No Meaningful Use Info Meaningful Use Meaningful Use Diagnoses (Choose all that apply): None applicable Ischemic Stroke Statin Dosing Therapy Reference: STATIN DOSE THERAPY REFERENCE: * Patients > 75 years receive moderate or high dose statin therapy. * Patients 75 years or YOUNGER should receive HIGH intensity statin dose unless contraindicated. You will be required to document reason for non-treatment if statin daily dose does not meet guidelines. HIGH DOSE STATIN THERAPY DAILY Atorvastatin > than or = to 40 mg Rosuvastatin > than or = to 20 mg Amlodipine + Atorvastatin > than or = to 2.5/40 mg Ezetimibe + Simvastatin 10/80 mg Simvastatin 80mg Discharge Plan Admission Admit Date/Time: 11/20/24 16:05 Primary Reason for Your Visit: Back Pain Attending Provider: Karla Troncoso Primary Care Provider: [facility] Consulting Providers: Guillermina Hennessy Instructions Additional Instructions / Restrictions: 1. Do not take Ultram with Quincy (hydrocodone-acetaminophen) 2. Please get your epidural injection as soon as possible Discharge Orders/Prescriptions Prescriptions: New sennosides-docusate sodium [Stimulant Laxative Plus] 8.6-50 mg Tablet 2 tab PO BID Qty: 60 0RF hydrocodone-acetaminophen 5-325 mg tablet 1 tab PO Q6H PRN (Reason: pain) 7 Days Qty: 14 0RF lidocaine 4 % adhesive patch,medicated 1 patch topical DAILY PRN (Reason: pain) Qty: 15 0RF Continued atorvastatin 40 MG tablet 20 mg PO QHS clopidogrel 75 MG tablet 75 mg PO QHS tamsulosin 0.4 mg Capsule 0.4 mg PO QHS Eliquis DVT-PE Treat 30D Start 5 mg (74 tabs) tablets,dose pack 2.5 mg PO BID diltiazem HCl 120 mg tablet extended release 24 hr 120 mg PO Q24H multivitamin [Daily Multi-Vitamin] Tablet 1 tab PO DAILY Referrals / Follow Up: [facility] [Primary [facility] Provider[facility] - Within 2 Weeks Disposition Disposition (needs filled in before D/C Order can be placed): Home, Self Care Charges/Coding Visit Charges Inpatient E&M: 88174 Disch Hosp
--- NOTE | 2024-11-22 08:28 | CASEMGMT ---
Addendum entered by Jeffrey Sheffield 11/22/24 09:55: Kellie from [facility] called this RN SIERRA back. Updated her that pt was dc'd home yesterday. Original Note: SANDRA ESQUIVEL NOTE: CATY received from Thu @ the [facility] requesting call back w/update on pt. Call placed to [facility] at this time @ [phone], ext [phone]. No answer. left for her to call this RN SIERRA back when available. Marci JACKSONN SANDRA CM
== END 2024-11-21 17:00 | disposition home or self-care (01) ==
LOC: ED 13:45 → PCU 16:46
PROVIDERS: Admitting Provider Internal Medicine; Emergency Provider Emergency Medicine; Visit Provider Internal Medicine
DX: M54.50 Low back pain, unspecified (principal); G89.29 Other chronic pain; G47.33 Obstructive sleep apnea (adult) (pediatric); I10 Essential (primary) hypertension; E78.5 Hyperlipidemia, unspecified; R26.2 Difficulty in walking, not elsewhere classified; I25.10 Atherosclerotic heart disease of native coronary artery without angina pectoris; N40.1 Benign prostatic hyperplasia with lower urinary tract symptoms; N13.8 Other obstructive and reflux uropathy; R35.0 Frequency of micturition; E66.9 Obesity, unspecified; Z68.34 Body mass index [BMI] 34.0-34.9, adult; F17.210 Nicotine dependence, cigarettes, uncomplicated; Z79.01 Long term (current) use of anticoagulants; Z79.02 Long term (current) use of antithrombotics/antiplatelets; Z79.899 Other long term (current) drug therapy; Z86.711 Personal history of pulmonary embolism; Z95.5 Presence of coronary angioplasty implant and graft
CPT/HCPCS: 36415; 80048; 81001; 85025; 96374; 96375; 96376; 97161; 99221; 99285; A4216; G0378; J2405